=== PATIENT | female | born 1985 | race Caucasian/White ===

== ENCOUNTER → 2017-06-21 | Outpatient (CLI) | payer OTHER ==
[~2017-06-21] MED LIST: ATOR20TA65 PO; BLOO-292; BLOO-960 MC; HYDROC5PT PO; INSU100I30 SQ; LANC-165; LEVO175T38 PO; METF-410 PO; METF500T4 PO
[2017-06-21 08:13] LABS: PLATELET COUNT, AUTOMATED 256 K/uL (150-450)
== END ==
LOC: LAB 07:01
PROVIDERS: ATTEND Internal Medicine
DX: E78.5 Hyperlipidemia, unspecified (principal); E11.9 Type 2 diabetes mellitus without complications; E27.1 Primary adrenocortical insufficiency; E03.9 Hypothyroidism, unspecified
CPT/HCPCS: 36415; 82040; 82043; 82247; 82310; 82374; 82435; 82465; 82565; 82947; 83036; 83718; 84075; 84132; 84155; 84295; 84439; 84443; 84450; 84460; 84478; 84520; 85025

== ENCOUNTER → 2017-12-26 | Outpatient (REF) ==
[~2017-12-26] MED LIST changes: +ATOR40TA69 PO; +FLAS1EAC; +FLAS1KIT TP; -METF-410 PO; +METF-450 PO; +METR-1 PO; +[UNRECOGNIZED DRUG - CODE] MC
== END ==
DX: Z02.9 Encounter for administrative examinations, unspecified (principal)

== ENCOUNTER → 2018-01-08 | Outpatient (CLI) | payer OTHER ==
[~2018-01-08] MED LIST changes: +FEN200PT GT; +METF-452 PO
== END ==
LOC: LAB 10:30
PROVIDERS: ATTEND Internal Medicine
DX: E11.9 Type 2 diabetes mellitus without complications (principal); E78.5 Hyperlipidemia, unspecified; C71.9 Malignant neoplasm of brain, unspecified; E27.1 Primary adrenocortical insufficiency
CPT/HCPCS: 83036; 84146; 84439

== ENCOUNTER → 2018-02-22 | Outpatient (CLI) | payer OTHER ==
[2018-02-22 07:13] LABS: LDL CHOLESTEROL 61 mg/dl
== END ==
LOC: LAB 06:35
PROVIDERS: ATTEND Nurse Practitioner Family
DX: Z01.83 Encounter for blood typing (principal); Z13.0 Encounter for screening for diseases of the blood and blood-forming organs and certain disorders involving the immune mechanism; Z11.3 Encounter for screening for infections with a predominantly sexual mode of transmission; Z11.59 Encounter for screening for other viral diseases; Z11.8 Encounter for screening for other infectious and parasitic diseases; Z13.29 Encounter for screening for other suspected endocrine disorder
CPT/HCPCS: 36415; 82040; 82247; 82310; 82374; 82435; 82465; 82565; 82627; 82947; 83001; 83002; 83036; 83520; 83718; 84075; 84132; 84146; 84155; 84295; 84403; 84443; 84450; 84460; 84478; 84520; 84702